=== PATIENT | male | born 1965 | race Asian ===

== ENCOUNTER 2021-10-24 12:06 | Emergency (ER) | payer OTHER ==
[~2021-10-24] VITALS: Ht 160 cm; Wt 67.1 kg
[2021-10-24 12:06] VITALS: BP_SYST 156
--- NOTE | 2021-10-24 12:06 | NUR ---
Pt to bed 2 for evaluation. Report given to FELICIA Dasilva who will assume care.
--- NOTE | 2021-10-24 12:15 | NUR ---
Pt to bed #2 LESLEY coming from work states he had a syncopal episode. States his coworkers caught him and layed him down on the floor and called 911. Pt states he feels very dizzy. Pt is A&Ox4. Skin intact. Connected pt to [facility] director and [facility]. No chest pain and no sob. Denies n/v. allergic to cinnamon. Has hx of DM and HTN. Bed in lowest position.
--- NOTE | 2021-10-24 12:21 | NUR ---
# 20 gauge angiocath placed to Right AC. Use of asceptic technique. Opsite placed over site. Blood return noted. Blood for lab drawn from site. Flushed with 10 cc of normal saline. No evidence of infiltration noted. Patient tolerated well.
--- NOTE | 2021-10-24 12:25 | NUR ---
ER at bedside examining patient.
[2021-10-24 12:31] LABS: RED CELL DISTRIBUTION WIDTH 13.1 % (9.0-15.0)
--- NOTE | 2021-10-24 12:31 | NUR ---
EKG performed at BS by myself. Physician given copy of EKG for review.
[2021-10-24 12:38] LABS: BASOPHILS # (AUTO) 0.1 K/uL (0.0-0.2); BASOPHILS % (AUTO) 1.1 % (0.0-2.0); EOSINOPHILS # (AUTO) 0.2 K/uL (0.0-0.4); HEMATOCRIT 47.8 % (36-54); HEMOGLOBIN 16.1 g/dL (14.0-18.0); LYMPHOCYTES # (AUTO) 1.5 K/uL (1.0-5.5); LYMPHOCYTES % (AUTO) 28.8 % (20.5-51.5); MEAN CORPUSCULAR HEMOGLOBIN 31 pg (27-31); MEAN CORPUSCULAR HGB CONC 34 % (32-36); MEAN CORPUSCULAR VOLUME 92 fL (79.0-98.0); MONOCYTES # (AUTO) 0.6 K/uL (0.0-1.0); MONOCYTES % (AUTO) 10.9 % (1.7-9.3); NEUTROPHILS # (AUTO) 2.9 K/uL (1.8-7.7); NEUTROPHILS % (AUTO) 55.2 % (40.0-70.0); PLATELET COUNT (AUTO) 158 K/uL (130-430); RED BLOOD CELL COUNT(AUTO) 5.23 MIL/uL (4.2-6.2); WHITE BLOOD COUNT (AUTO) 5.2 K/uL (4.8-10.8)
--- NOTE | 2021-10-24 12:38 | NUR ---
Accucheck done and results were 134.
[2021-10-24 12:40] LABS: ANION GAP 10 (5-15); CALCIUM 8.7 mg/dL (8.4-11.0); CHLORIDE 103 mmol/L (98-107); CREATININE 0.79 mg/dL (0.55-1.30); GLUCOSE 127 mg/dL (70-99); POTASSIUM 3.4 mmol/L (3.5-5.1); SODIUM SERUM 140 mmol/L (136-145); UREA NITROGEN, BLOOD 17 mg/dL (8-21)
[2021-10-24] MEDS: NACL 0.9% 1,000 ML IV ONE (12:40)
[2021-10-24 12:43] LABS: GFR AFRICAN AMERICAN 130 mL/min (>90)
[2021-10-24 12:52] LABS: ALANINE AMINOTRANSFERASE 39 U/L (12-78); ALBUMIN 4.2 g/dL (3.4-4.8); ASPARTATE AMINOTRANSFERASE 31 U/L (10-37); TOTAL BILIRUBIN 1.2 mg/dL (0.0-1.0)
--- NOTE | 2021-10-24 13:00 | NUR ---
X-ray done at bedside.
--- NOTE | 2021-10-24 13:02 | NUR ---
Pt to CT via [facility], accompanied by staff.
--- NOTE | 2021-10-24 13:13 | NUR ---
PT return from CT via [facility], accompanied by staff.
[2021-10-24 13:20] LABS: CHOLESTEROL 214 mg/dL (<200); HDL CHOLESTEROL 70 mg/dL (>45); LDL CHOLESTEROL 120 mg/dL (<100); TRIGLYCERIDES 65 mg/dL (30-150)
--- NOTE | 2021-10-24 13:52 | NUR ---
Orthostatics vital signs completed by systems checkout mechanic.
--- NOTE | 2021-10-24 14:10 | NUR ---
Urine specimen collected and sent to lab.
[2021-10-24 14:16] LABS: BILIRUBIN,URINE NEGATIVE (NEGATIVE); BLOOD, URINE NEGATIVE (NEGATIVE); CLARITY/URINE CLEAR (CLEAR); COLOR,URINE YELLOW (YELLOW); GLUCOSE,URINE NEGATIVE (NEGATIVE); KETONES,URINE TRACE (NEGATIVE); LEUKOCYTE ESTERASE ,URINE NEGATIVE (NEGATIVE); NITRITE, URINE NEGATIVE (NEGATIVE); PH,URINE 7.5 (5.0-8.0); PROTEIN URINE NEGATIVE (NEGATIVE); UROBILINOGEN,URINE 0.2 (0.2-1.0)
[2021-10-24 14:35] LABS: BARBITURATE, URINE NEGATIVE (NEG <=200); BENZODIAZEPINE, URINE NEGATIVE (NEG <=150); CANNABINOID, URINE NEGATIVE (NEG <=50); COCAINE, URINE NEGATIVE (NEG <=150); METHAMPHETAMINES SCREEN,URINE NEGATIVE (NEG <=500); OPIATE, URINE NEGATIVE (NEG <=100); PHENCYCLIDINE SCREEN,URINE NEGATIVE (NEG <=25); UR TRICYCLIC ANTIDEPRESSANTS NEGATIVE (NEG <=300); URINE AMPHETAMINE NEGATIVE (NEG <=500); URINE METHADONE NEGATIVE (NEG <=200); URINE OXYCODONE SCREEN NEGATIVE (NEG <=100); URINE PROPOXYPHENE SCREEN NEGATIVE (NEG <=300)
--- NOTE | 2021-10-24 14:48 | NUR ---
Report rcvd from outgoing RN, all cares assumed. Willie,RN
[2021-10-24] MEDS ORDERED: LISI10TA29 PO (15:17)
[2021-10-24 15:26] VITALS: BP_SYST 169
[2021-10-24] MEDS: LISINOPRIL 10 MG TABLET (PRINIVIL) PO ONE (15:26)
--- NOTE | 2021-10-24 15:27 | NUR ---
Patient given written and verbal discharge instructions and verbalizes understanding. ER MD discussed with patient the results and treatment provided. Patient in stable condition. ID arm band removed. IV catheter removed intact and dressing applied, no active bleeding. Rx of given. Patient educated on pain management and to follow up with PMD. Pain Scale 0/10 Opportunity for questions provided and answered. Medication side effect fact sheet provided.
== END 2021-10-24 15:27 | disposition home or self-care (01) ==
LOC: SED 12:06
DX: R55 Syncope and collapse (principal); I10 Essential (primary) hypertension; Z79.899 Other long term (current) drug therapy
CPT/HCPCS: 36415; 70450; 71045; 76376; 80053; 80061; 80307; 81003; 82962; 83880; 84484; 85025; 93005; 96360; 99285; J7030